=== PATIENT | male | born 1970 | race Caucasian/White ===

== ENCOUNTER 2025-01-27 22:03 | Emergency (ER) | payer BC, SELFPAY ==
[2025-01-27 22:07] VITALS: BP 144/86
[2025-01-28 00:21] VITALS: BP 113/75
[2025-01-28 01:00] VITALS: BP 129/82
--- NOTE | 2025-01-28 01:16 | ED.GENMED ---
History of Present Illness
General
Chief Complaint: Musculo-Skeletal Complaint
Source: patient and spouse
Time Seen by Provider: 01/28/25 00:56
History of Present Illness
History of Present Illness:
This patient is a 55-year-old male presents emergency department complaints of discomfort that he first noted on Monday described as involving his neck posteriorly and his shoulders bilaterally, described as a 'ache'. He also noticed it in his
lower back and legs. He said he would have a occasional headache 'here and there' associated with this. He took Advil and his symptoms improved. He did state that his symptoms would 'come and go'. Symptoms were worse with movement. He suspected
that the symptoms were related to his resuming of his form of exercise which is virtual boxing, the day before. 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
recurrent discomfort in the posterior neck described as a 'ache. He says he started to get 'panicky' about this, and started to wonder if it could be related to elevated blood pressure. Of note, patient had a recent reading of elevated blood
pressure with his primary care doctor but was not thought to have an elevation making him a candidate for medications. Patient denies associated diaphoresis, visual changes, numbness, tingling, focal weakness, dizziness, vertigo, abdominal pain,
dyspnea. While waiting here in the waiting room he states that the neck discomfort went to his shoulders, and now he is completely pain-free. Patient is seen a director of automation in the past as he had an established relationship with his thymoma
removal, was told his workups have been unremarkable and that he no longer needs to be followed by them. He has no prior history of cardiac illness, clotting disorder, etc. He denies family history of sudden cardiac , aneurysm, dissection,
etc. Patient is currently asymptomatic. He does report that about a month ago he was on a short flight, lasting less than 2 hours and as he was leaving, a nearby drinking cup tipped over and hit him 'at the top of my spine', described as the upper
part of his T-spine area. It hurt for a day or 2 and then resolved completely. He is unclear if this is related. Patient denies a pleuritic component to his symptoms.
Past History
Past History
ED Past Medical History: GERD, Psychiatric (Anxiety) and Other (Diverticulosis, gastritis, thymoma removal s/p radiation 06/29 at [facility])
ED Past Surgical History: Other (thymoma removal, wisdom tooth extraction)
Social History
Tobacco: Former smoker (in teenage years )
Alcohol: None
Drug: None
Personal:
Living: with family
Family History
Family History: Other (Noncontributory)
Phy Exam
Physical Exam
Physical Exam:
(late entry 01.30.25)
GENERAL: Alert , in no apparent distress
EYE: pupils equal and reactive
NECK: Supple, no significant adenopathy, no ttp midline, no bruit, no swelling noted.
ENT: o/p clr, mmm.
CARDIAC: Regular rate and rhythm .
LUNGS: Clear breath sounds bilaterally, no acute respiratory distress, no wheezes/rales/rhonchi
ABDOMEN: Soft, without focal tenderness, no r/g, no cvat
NEUROLOGICAL: Alert and oriented, no focal neuro deficits
SKIN: Warm and dry, skin intact.
MUSCULOSKELETAL: No edema, well perfused.
PSYCH: Normal and appropriate interaction.
Course
Orders/Labs/Results
Orders:
Orders
01/27/25 22:16
Electrocardiogram (*1) Urgent
Reason for Study: Chest Pain
EKG- Treatment ONCE
Vital Signs
Initial and Last Documented VS:
Initial Vital Signs
Temp Pulse Resp BP Pulse Ox
98.4 F 98 18 144/86 98
01/27/25 22:07 01/27/25 22:07 01/27/25 22:07 01/27/25 22:07 01/27/25 22:07
Last Documented Vital Signs
Temp Pulse Resp BP Pulse Ox
98.4 F 83 16 129/82 98
01/27/25 22:07 01/28/25 01:45 01/28/25 01:45 01/28/25 01:00 01/28/25 01:45
*Pulse Oximetry
SaO2: 98
Oxygen Mode of Delivery: Room air
Patient hypoxic: no
*Critical Care Note
Total Time (30-74mins, 75-104mins- exclusive of procedures): Not Applicable
Update Note
Update Note:
Patient presents to the Emergency Department with __neck/back/leg pain
Number and Complexity of Problems Addressed at the Encounter
� Chronic conditions affecting care:
� Acute Exacerbation and/or Progression of Chronic Illness:
� Differential Diagnosis includes: But not limited to muscular strain, radiculopathy, ACS, etc. etc. etc.
Amount and/or Complexity of Data to be Reviewed and Analyzed
� I performed an independent evaluation of and my interpretation is:
EKG: Read by me, normal sinus rhythm, normal rate, normal axis, no acute ischemia
CT:
Xrays:
Laboratory Studies:
Other:
� Review of other/old records reveals:
� Clinical information was obtained by an independent historian: who is bedside
� Prescriptions/Medications Considered but not given:
� Further testing considered but not performed:
Risk of Complications and/or Morbidity or Mortality of Patient Management
� Social determinants of health affecting care:
� Discussion with other providers (PCP, Hospitalists, Consultants, etc):
� Escalation of care including admission/observation vs risk of discharge considered: 1:34 AM Long long discussion with patient and regarding his workup here. He declines any further testing beyond an ECG. He understands
that an ECG alone is not a complete workup and we are unable to fully exclude potentially serious/life-threatening illness such as ACS, dissection, PE, etc. etc. I did describe to him our concerns and that if he changed his mind about this decision
he is strongly encouraged to return to the emergency department. He does plan to contact his director of automation and PCP in the morning. Patient remains pain-free. I also did clarify with patient regarding the report of 'chest pain' in the triage note
that that that both he and his states that that was misinterpreted and that he has never had chest pain. He was describing discomfort in the neck and along the sides of his thorax that was very movement related.
ED Attending Note
-
Portions of this chart may have been created with voice recognition software.� Occasional wrong word or��sound alike� substitutions may have occurred due to the inherent limitations of voice recognition software.
Discharge Plan
Departure
Patient Disposition: Home (Routine Discharge)
Date of Disposition: 01/28/25
Time of Disposition: 01:35
Patient with high blood pressure during this ER visit?: Yes
Condition: Good
Discharge Problem:
Neck pain
Instructions: BLOOD PRESSURE
Prescriptions:
No Action
famotidine 20 MG tablet
20 mg PO DAILYPRN PRN (Reason: gerd)
ergocalciferol (vitamin D2) 1,250 mcg (50,000 unit) Capsule
1,250 mcg PO WE
Linzess 145 mcg Capsule
145 mcg PO Q48H
oxycodone-acetaminophen 5-325 mg Tablet
2 tab PO Q4HPRN PRN (Reason: severe pain) Qty: 15 0RF
ibuprofen 600 mg tablet
600 mg PO Q6H PRN (Reason: Pain) Qty: 30 0RF
Activity Restrictions/Additional Instructions:
WE RECOMMENDED FURTHER TESTING TONIGHT BUT YOU DECLINED. IF YOU CHANGE YOUR MIND PLEASE COME BACK WE WANT TO TAKE CARE OF YOU! IT IS HIGHLY RECOMMENDED THAT YOU CONTACT BOTH YOUR PRIMARY CARE DOCTOR AND SUBMARINE ADVISORY TEAM WATCH OFFICER IN THE MORNING FOR FURTHER
CARE. IF YOU DEVELOP CHEST PAIN, SHORTNESS OF BREATH, DIZZINESS, NUMBNESS, TINGLING, NAUSEA, OR OTHER WORRISOME SIGNS, PLEASE RETURN TO THE ER IMMEDIATELY!
Interventions
Interventions:
*Risk Screen - Suicide Last Done: 01/27/25 22:14
*General Assessment Last Done: 01/28/25 01:49
*Neglect/Abuse Screening Last Done: 01/27/25 22:14
*ED- Fall Risk Assessment Last Done: 01/28/25 01:49
*ED COVID-19 Vaccine History Last Done: 01/28/25 01:49
*Nursing Disposition Last Done: 01/28/25 01:56
ED-Musculoskeletal Assessment Last Done: 01/28/25 01:49
Discharge Date and Time
Discharge Date/Time: 01/28/25 02:04
Print Language: ALBANIAN
== END 2025-01-28 02:04 | disposition home or self-care (01) ==
LOC: EMR 22:03
PROVIDERS: EMERGENCY PHYSICIAN Emergency Medicine; FAMILY PHYSICIAN Family Medicine
DX: M54.2 Cervicalgia (principal); K21.9 Gastro-esophageal reflux disease without esophagitis; F41.9 Anxiety disorder, unspecified; Z87.19 Personal history of other diseases of the digestive system; Z87.891 Personal history of nicotine dependence
CPT/HCPCS: 99283; 93005

== ENCOUNTER 2025-01-28 12:00 | Inpatient (IN) | payer BC, SELFPAY ==
[2025-01-28] VITALS (12 sets, daily range): BP systolic 107–144; BP diastolic 79–92; BMI 33.0; BMI 33.9
[2025-01-28 05:21] LABS: Hematocrit 44.0 % (39.0-52.0); Hemoglobin 15.5 g/dL (13.0-18.0); Mean Corp Hgb Conc. 35.2 g/dL (33.0-37.0); Mean Corpuscular Volume 80.4 fL (80.0-94.0); Platelet Count 170 10^3/uL (130-400); Red Cell Dist. Width 12.0 % (11.5-14.5)
--- NOTE | 2025-01-28 05:36 | ED.GENMED ---
History of Present Illness
General
Chief Complaint: Chest Pain
Source: patient and spouse
Time Seen by Provider: 01/28/25 05:14
History of Present Illness
History of Present Illness:
This patient is a 55-year-old male with complaints of pain that returned after he left the emergency department. He describes feeling it in his upper back but also across his chest. His states that he developed diaphoresis with this although
he is not diaphoretic at this time. He also notes discomfort in the left shoulder 'a little'. He describes the pain as 'achy', and seems to be worse when he takes a deep breath. He denies associated leg swelling, fever, chills, nausea, vomiting,
abdominal pain, numbness, tingling, focal weakness, dizziness, visual changes, change in speech. The pain is constant and is worse with certain movements including a deep breath. Of note, patient was seen earlier in the emergency department by me,
was describing an ache in his neck and shoulders but specifically denied chest pain at that time. His ECG was unremarkable. I strongly recommended further testing but he declined at that time and was encouraged to return to the ER if he changes
mind which he did.
Past History
Past History
ED Past Medical History: GERD, Psychiatric (Anxiety) and Other (Diverticulosis, gastritis, thymoma removal s/p radiation 06/29 at [facility])
ED Past Surgical History: Other (thymoma removal, wisdom tooth extraction)
Social History
Tobacco: Former smoker (in teenage years )
Alcohol: None
Drug: None
Personal:
Living: with family
Family History
Family History: Other (Noncontributory)
Phy Exam
Physical Exam
Physical Exam:
GENERAL: Alert , appears mildly uncomfortable
EYE: pupils equal and reactive
NECK: Supple, no significant adenopathy.
ENT: o/p clr, mmm.
CARDIAC: Regular rate and rhythm .
LUNGS: Clear breath sounds bilaterally, no acute respiratory distress, no wheezes/rales/rhonchi
ABDOMEN: Soft, without focal tenderness, no r/g, no cvat
NEUROLOGICAL: Alert and oriented, no focal neuro deficits
SKIN: Warm and dry, skin intact.
MUSCULOSKELETAL: No edema, well perfused.
PSYCH: Normal and appropriate interaction.
Scores
Heart Score for Chest Pain Patients
STEMI patient?: Not applicable
Course
Orders/Labs/Results
Orders:
Orders
01/28/25 04:04
EKG [Electrocardiogram (*1)] Urgent
Reason for Study: Chest Pain
EKG- Treatment ONCE
01/28/25 04:20
Chest [CR Chest - 2 Views ] Urgent
Comment:
Reason For Exam: chest pain increased on deep insp
01/28/25 04:49
Complete Blood Count/No Diff Urgent
Comprehensive Metabolic Panel Urgent
D-Dimer Urgent
Troponin I Urgent
01/28/25 05:35
HYDROmorphone [Dilaudid] 1 mg IV NOW STA
01/28/25 06:34
HYDROmorphone [Dilaudid] 1 mg IV NOW STA
01/28/25 06:42
CT Chest PE Study Urgent
Comment:
Reason For Exam: chest pain
01/28/25 09:11
Ketorolac [Toradol] 15 mg IV NOW STA
01/28/25 11:30
HYDROmorphone [Dilaudid] 1 mg IV Q4HPRN PRN
Ketorolac [Toradol] 15 mg IV Q6HPRN PRN
Oxycodone/Acetaminophen [Percocet 5/325] 2 tablet PO Q4HPRN PRN
01/28/25 11:31
Admit/Transfer Patient As Directed
Co-Sign Provider:
Level of Care: Inpatient admission
Assign to:: Medical/Surgical
Physician / Group: Dr. Arango
Diagnosis: Pleural mass
Reason for Hospitalization: Chest pain
Expected length of stay greater than two midnights?: Yes
ELOS- Estimated Length of Stay in days: 2
I certify the patient meets the requirements for IP care: Yes
01/28/25 11:35
Code Status As Directed
Resuscitation Status: Full Code
01/28/25 Dinner
Regular
At Your Request: Full Participation
Does patient need a safe tray?: No
01/28/25 15:58
Acetaminophen [Tylenol] 650 mg PO Q4HPRN PRN
Bisacodyl [Dulcolax] 10 mg RECTAL [id number] PRN
Docusate W/Senna [Senokot-S] 1 tablet PO BIDPRN PRN
Famotidine [Pepcid] 20 mg PO DAILYPRN PRN gerd
Ondansetron Injectable [Zofran] 4 mg IV Q6HPRN PRN
Polyethylene Glycol Powder [Miralax] 17 grams PO DAILYPRN PRN
01/28/25 15:58
PULMONARY CONSULT Routine
Consulting Provider: Rafael Escoto
Was physician already notified: Yes
Reason for consult: chest pain, Pleural mass vs loculated fluid
Activity As Directed
Activity Level: As Tolerated
Pneumatic Compression Sleeves As Directed
Type: Knee high
Vital Signs As Directed
Frequency: Per unit guidelines
O2 Therapy [RESP] Routine
Titrate/Wean O2 to maintain O2 sat greater than (%): 92
DX Deep Vein Thrombosis Video Routine
01/29/25 05:51
Basic Metabolic Panel IN AM
Complete Blood Count/With Diff IN AM
01/29/25 06:00
Linaclotide [Linzess] 145 mcg PO Q48H
01/29/25 08:00
Ergocalciferol [Drisdol (Vitamin D2)] 50,000 units PO WE@0800
Abnormal Lab Results
01/28/25
04:49
D-Dimer 0.61 H ug/mlFEU
(0.00-0.50)
Glucose 125 H mg/dl
(70-99)
Total Bilirubin 1.4 H mg/dl
(0.2-1.3)
01/28/25 04:49
01/28/25 04:49
Vital Signs
Initial and Last Documented VS:
Initial Vital Signs
Temp Pulse Resp BP Pulse Ox
98.9 F 98 18 144/87 99
01/28/25 04:15 01/28/25 04:15 01/28/25 04:15 01/28/25 04:15 01/28/25 04:15
Last Documented Vital Signs
Temp Pulse Resp BP Pulse Ox
98.2 F 92 19 126/87 97
01/29/25 11:52 01/29/25 11:52 01/29/25 11:52 01/29/25 11:52 01/29/25 11:52
*Pulse Oximetry
SaO2: 97
Oxygen Mode of Delivery: Room air
Patient hypoxic: no
*Critical Care Note
Total Time (30-74mins, 75-104mins- exclusive of procedures): Not Applicable
Update Note
Update Note:
Patient presents to the Emergency Department with ___chest back shoulder pain
Number and Complexity of Problems Addressed at the Encounter
� Chronic conditions affecting care:
� Acute Exacerbation and/or Progression of Chronic Illness:
� Differential Diagnosis includes: But not limited to ACS, musculoskeletal pain, PE, dissection, etc. etc.
Amount and/or Complexity of Data to be Reviewed and Analyzed
� I performed an independent evaluation of and my interpretation is:
EKG: Read by me, normal sinus rhythm, no acute ischemic changes noted
CT:
1. New 5.2 cm pleural-based mass in the anterior left hemithorax abutting the anterior and mediastinal pleural surfaces. Diagnostic possibilities are (1) loculated complex pleural fluid or (2) recurrent metastatic thymoma.
2. New small left pleural effusion in the inferior left hemithorax.
3. Moderate left lower lobe airspace opacity. Mild airspace opacity in the lingula, right middle lobe, and right lower lobe. Diagnostic possibilities are (1) multifocal atelectasis, (2) pneumonia (especially in the left lower lobe), or (3) less
likely alveolar pulmonary edema.
4. Chronic pulmonary arterial hypertension.
5. Mild cardiomegaly.
Xrays: Read by me, NAD
Laboratory Studies: Troponin normal, age-adjusted did D-dimer slightly elevated
Other:
� Review of other/old records reveals:
� Clinical information was obtained by an independent historian: who is bedside
� Prescriptions/Medications Considered but not given:
� Further testing considered but not performed:
Risk of Complications and/or Morbidity or Mortality of Patient Management
� Social determinants of health affecting care:
� Discussion with other providers (PCP, Hospitalists, Consultants, etc):
� Escalation of care including admission/observation vs risk of discharge considered: I initially ordered morphine for patient's pain but he states it makes him nauseous. He suggested Dilaudid, and understands that this may also
put him at risk for nausea, accepting that risk he requests this medication for pain.
6:43 AM vitals remained stable, no diaphoresis, patient's pain unchanged. Repeat dose of pain medication ordered. D-dimer just resulted, CT ordered.
824am CT resulted, printed outa nd d/w pt and . He is still having pain, but improved. Vitals stable. Recommend admission, pulm eval, etc. D/w hospitalist via tt. No PE noted on CT. Highly doubt dissection given pulses equal, no hx htn,
not ripping/tearing, not sudden onset, etc etc.
ED Attending Note
-
Portions of this chart may have been created with voice recognition software.� Occasional wrong word or��sound alike� substitutions may have occurred due to the inherent limitations of voice recognition software.
Discharge Plan
Departure
Patient Disposition: Admit
Date of Disposition: 01/28/25
Time of Disposition: :
Admit to: Telemetry
Presentation/result/management discussed w/ accepting MD/DO: Hospitalist
Condition: Fair
Discharge Problem:
Chest pain
Interventions
Interventions:
*Risk Screen - Suicide Last Done: 01/28/25 04:15
*General Assessment Last Done: 01/28/25 05:06
*Neglect/Abuse Screening Last Done: 01/28/25 09:08
*ED- Fall Risk Assessment Last Done: 01/28/25 05:05
*ED COVID-19 Vaccine History Last Done: 01/28/25 05:05
*Nursing Disposition Last Done: 01/28/25 17:45
ED- Cardiac Assessment Last Done: 01/28/25 05:07
Discharge Date and Time
Discharge Date/Time: 01/28/25 17:45
[2025-01-28] MEDS: DILAUDID 1 MG IV ×2 (05:40→06:44)
[2025-01-28 05:45] LABS: ALT (SGPT) 34 U/L (0-50); AST (SGOT) 23 U/L (17-59); Albumin 4.5 g/dl (3.5-5.0); Alkaline Phosphatase 52 U/L (38-126); Blood Urea Nitrogen 17 mg/dl (9-20); Calcium 9.6 mg/dl (8.4-10.2); Carbon Dioxide 24 mmol/L (22-30); Chloride 104 mmol/L (98-107); Estimated Creatinine Clearance 85 ml/min; Glucose 125 mg/dl (70-99); Potassium 4.3 mmol/L (3.5-5.1); Sodium 137 mmol/L (135-145); Total Protein 7.3 g/dl (6.3-8.2); eGFR > 60.00
[2025-01-28 05:55] LABS: Troponin I < 0.012 ng/ml
[2025-01-28 06:21] LABS: D-Dimer 0.61 ug/mlFEU (0.00-0.50)
[2025-01-28] MEDS: TORADOL 15 MG IV ×3 (09:16→20:35)
--- NOTE | 2025-01-28 11:41 | HPS.HSE ---
Family Physician
-
Family Physician: Michael Orozco
Chief Complaint
-
Chest pain
History of Present Illness
55M with history of thymoma s/p resection, vitamin D deficiency who presents with acute onset of neck shoulder and chest pain. He notes that the pain started Monday after virtual boxing session mostly in the back of his neck with them this
radiated to his left shoulder and continue to evolve into his chest and between the shoulder blades, worsening with deep breaths, associated with sweats, such that he had to come to the ER. He denies recent fevers, chills, upper respiratory
symptoms, cough, nausea, vomiting, abdominal pains. His is at bedside. Patient received some IV Toradol for the pain and was much improved. He currently denies shortness of breath.
CT shows a new 5.3 cm pleural mass on the left side questionable recurrence of metastatic thymoma versus loculated pleural fluid as well as a LLL opacity.
Medical History
Past Medical History
Past Medical History: Reports Other (GERD, Psychiatric (Anxiety) and Other (Diverticulosis, gastritis, thymoma removal s/p radiation 06/29 at [facility]))
Past Surgical History: Reports Other (Other (thymoma removal, wisdom tooth extraction))
Social History
Tobacco: Former Smoker (As a teenager 1 to 2 packs/day for 4 to 5 years)
Alcohol: None
Drug: None
Personal:
Living: With Family
Family History
Family History: Cancer (Mother lung cancer) and Diabetes (Father)
Allergies / Home Medications
Allergies reflects when Allergies were last updated in [facility].
Home Medications with original date entered in [facility]
Allergy/Medication List:
Allergies
Allergy/AdvReac Type Severity Reaction Status Date / Time
Gadolinium-Containing Allergy Nausea / Verified 01/28/25 04:15
Contrast Medi Vomiting
morphine Allergy Unknown Verified 01/28/25 04:15
Home Medications
famotidine 20 mg tablet 20 mg PO DAILYPRN PRN gerd 01/01/17
ergocalciferol (vitamin D2) 1,250 mcg (50,000 unit) capsule 1,250 mcg PO WE 01/28/25
linaclotide 145 mcg capsule (Linzess) 145 mcg PO Q48H 01/28/25
Review of Systems
-
A 12 point ROS was completed and negative except as noted: Yes
Physical Exam
Vital Signs
Vital Signs
Temp Pulse Resp BP Pulse Ox
98.1 F 102 24 117/86 95
01/28/25 05:04 01/28/25 10:30 01/28/25 10:30 01/28/25 10:00 01/28/25 10:30
Physical Exam
General: No Apparent Distress
HEENT: Moist mucous membranes and PERRLA
Respiratory: Clear and Non Labored Respirations
Cardiac: S1/S2 and Regular Rhythm; No Murmur or Rub
GI: Soft, Non Tender, Non Distended and Normal Bowel Sounds
Musculoskeletal: No Clubbing, No Cyanosis and No Edema
Skin: Warm and Dry; No Rash
Neuro: Awake, AO x 3 and Nonfocal/grossly intact
Psych: Calm
Laboratory Results
-
01/28/25 04:49
01/28/25 04:49
Laboratory Results
Total Bilirubin 1.4 mg/dl (0.2-1.3) H 01/28/25 04:49
AST 23 U/L (17-59) 01/28/25 04:49
ALT 34 U/L (0-50) 01/28/25 04:49
Alkaline Phosphatase 52 U/L (38-126) 01/28/25 04:49
Troponin I < 0.012 ng/ml 01/28/25 04:49
Data Reviewed
-
CT Scan: Report Reviewed by me, Discussed with Physician, Discussed with Patient and Discussed with Family
Lab Data: Labs Reviewed by me, Discussed with Patient and Discussed with Family
Impression/Plan
-
IMPRESSION:
55M with H/o thymoma s/p surgery and radiation presenting with acute onset chest pain, found to have pleural mass, LLL opacity.
PLAN:
1. Pleuritic chest pain
#Pleural mass
#LLL opacity
Per CT read pleural mass could be recurrent metastatic thymoma versus loculated pleural effusion. This is likely what is causing his chest pain which is radiating to other parts of his body. He has neck and shoulder pain may alternatively be from
musculoskeletal pain.
Consulted pulmonology.. Appreciate recommendations. Monitoring off antibiotics for now, possible dx procedure pending comparison to previous CT
Patient wishes for any interventions to be performed with his known physicians at [facility]
Pain control with p.o. Percocet, IV Dilaudid, and IV Toradol as needed
Not requiring oxygen
2. constipation
linzess
3. vitamin D deficiency
continue supplementation
4. GERD
famotidine
5. mildly elevated total bilirubin
continue to monitor
DVT PPx
SCDs
Full code
--- NOTE | 2025-01-28 11:49 | CON.PUL ---
Consultation
Consultation Request
Date/Time Consultation Requested: 01/28/2025-1145 AM
Date/Time Consultation Performed: 01/28/2025-12 noon
Requesting Provider: hospitalist
Performing Provider: Dr. Escoto
Reason for Consultation: Pleural mass
Medical History
-
Chief Complaint: Shortness of breath
History of Present Illness:
55-year-old minimally previous smoking male with a history of thymoma status post radiation at [facility], GERD, anxiety, diverticulosis, gastritis who presented with pain upper back with some diaphoresis and some discomfort who had a CT chest that showed
a 4.2 cm pleural-based mass and pulmonary asked consult pleural-based mass 01/28/2025.. Patient states he gets routine CAT scans once yearly at [facility]-last one March 2024. Recently he thought he had musculoskeletal issues as he likes to ' Box'. He
came to the emergency room and left recently feeling better when then return with some pleurisy, diaphoresis. 3 weeks ago he was treated with 3 days of azithromycin for suspected pneumonia. He currently denies any shortness of breath at rest, some
dyspnea on exertion but no chest pain. Intermittent pleurisy and some muscular skeletal pains in the back. He has no fevers or chills, abdominal pain, nausea, leg swelling, or focal weakness
Past Medical History
Past Medical History: None (Thymoma status post resection/radiation [facility] 2017 . GERD. Anxiety. Diverticulosis. Gastritis. Community-acquired pneumonia October 2022. Prostatitis.)
Social History
Tobacco: Former Smoker (In his teenage years)
Alcohol: None
Drug: None
Personal:
Living: With Family
Occupational Exposures: No known asbestos exposure
Environmental Exposures: No known tuberculosis exposure
Family History
Family History: Reviewed & Not Pertinent (Father from sepsis. Type 2 diabetes, mother-lung cancer, sister cardiac arrest)
Allergies / Home Medications
Allergies
Allergy/AdvReac Type Severity Reaction Status Date / Time
Gadolinium-Containing Allergy Nausea / Verified 01/28/25 04:15
Contrast Medi Vomiting
morphine Allergy Unknown Verified 01/28/25 04:15
Home Medications
�Medication �Instructions �Recorded �Confirmed �Last Taken �Type
famotidine 20 mg tablet 20 mg PO DAILYPRN PRN gerd 01/01/17 01/28/25 Unknown History
ergocalciferol (vitamin D2) 1,250 1,250 mcg PO WE 01/28/25 01/28/25 Unknown History
mcg (50,000 unit) capsule
linaclotide 145 mcg capsule 145 mcg PO Q48H 01/28/25 01/28/25 Unknown History
(Linzess)
Review of Systems
-
Unable to Obtain full review of systems at this time due to: Other ( per HPI)
Vitals / Labs / Diagnostic Testing
Vital Signs
Temp Pulse Resp BP Pulse Ox
98.1 F 102 24 117/86 95
01/28/25 05:04 01/28/25 10:30 01/28/25 10:30 01/28/25 10:00 01/28/25 10:30
Lab Data
01/28/25 04:49
01/28/25 04:49
Diagnostic Testing:
Physical Exam
-
Exam:
Well-nourished and well-developed in no apparent distress
HEENT-atraumatic, normocephalic
Neck-supple, no JVD, no bruit
Heart-regular rate and rhythm-no murmurs, rubs or gallops
Chest-clear to auscultation, no wheezes, crackles
Back-no tenderness
Abdomen-soft, nontender, nondistended, no hepatosplenomegaly
Extremities-no cyanosis, clubbing, edema and good peripheral pulses
Integument-intact, no rashes, lesions or ecchymosis
Neurology-alert and oriented, nonfocal motor and sensory exam
Assessment
-
55-year-old minimally previous smoking male with a history of thymoma status post radiation at [facility], GERD, anxiety, diverticulosis, gastritis who presented with pain upper back with some diaphoresis and some discomfort who had a CT chest that showed
a 4.2 cm pleural-based mass and pulmonary asked consult pleural-based mass 01/28/2025.
Left upper lobe pleural-based mass-5.2 cm anterior mediastinal pleural surfaces
History of thymoma resection/radiation 2017
Multifocal pneumonia/Atelectasis-recent pneumonia treated 3 weeks ago with azithromycin
Conditions present prior to admission:
Thymoma status post resection/radiation [facility] 2018-followed yearly by Dr. Queen at [facility]-last CT chest March 2024
GERD.
Anxiety.
Diverticulosis.
Gastritis.
Community-acquired pneumonia October 2022.
Prostatitis..
Renal calculi.
Hiatal hernia.
Obesity
Thymoma removal 2017. Meniscus, left knee 2020. [place] teeth 2012
Plan
Acute decompensation related to musculoskeletal issues, but, has some intermittent pleurisy that may be related to pleural abnormality-loculated effusion versus mass.
Recommend CT chest comparison to [facility]-March 2024 CT-if pleural-based abnormalities are new, then additional diagnostics including possible biopsy will be recommended-would defer to [facility]-told patient and to make an appointment earlier than
anticipated March 2025 scheduled appointment
Has multiple areas of airspace disease that could be pneumonia, however, he has no leukocytosis. Her temperature- did report diaphoresis, however
Check pro calcitonin.
Check sputum culture if able.
Low threshold for antibiotics.
Follow radiographically.
Monitor pleurisy..
Toradol for analgesia per primary service-he received Toradol with good effect.
Pulmonary hypertension noted on CT chest -No central pulmonary emboli were noted
EKG without significant abnormalities.
Check echocardiogram to be completely
DVT prophylaxis.
Nutrition
Early mobilization.
Dr. Escoto reviewed with at the bedside in the emergency room
The patient is following yearly by [facility]-surgical team-Dr. Queen with yearly CT chest-last one March 2024, reportedly normal
Diagnostic data:
CXR 10/11/22: Right-sided opacification suspicious for pneumonia, predominantly right middle lobe appears slightly improved. Likely new small patchy opacification in the inferior right upper lobe.�������
CT chest PE study 10/09/2022: No PE. Right-sided pneumonia. Small right pleural effusion. Distended main pulmonary artery suggesting an element of pulmonary artery tree hypertension. Mild hepatosplenomegaly..
CT chest 01/28/25-comparison to chest x-ray 01/28/[address] chest September 2022, continue 5.2 cm pleural-based anterior left upper lobe mass abutting the anterior mediastinal pleural surfaces, the small left pleural effusion and moderate left lower lobe
airspace opacifications, mild airspace/patient lingula, right middle lobe and right lower lobe chronic pulmonary artery hypertension
Pulmonary function testing: (11/25/2022)FEV1 /FVC:78%FEV1:2.73 L-80%FVC:3.49 L to 78%Total lung capacity:4.59 L -71%Residual volume:0.88 L-40%Expiratory reserve volume:DLCO:24.18-88%DLCO/VA:116%
Data Reviewed
-
EKG: Report reviewed by me
Radiology: Image personally visualized and interpreted and Report reviewed by me
CT Scan: Image personally visualized and interpreted and Report reviewed by me
Medical Tests (Nuc Med, Echo etc): Report reviewed by me
Labs: Labs reviewed by me
Old Records: Reviewed
Total Time Spent with Patient (in minutes): 65
[2025-01-28 15:29] LABS: Procalcitonin 0.08 ng/ml (0.0-0.25)
[2025-01-28] MEDS: PEPCID 20 MG PO (18:05)
--- NOTE | 2025-01-28 18:06 | PTCARENOTE ---
Received pt from [facility] via stretcher. Pt ambulated to bed independently. AAOX3. Pt c/o sharp,shooting pain from middle chest to middle back, able to tolerate. Assessed and oriented to room. Pt verbalized understanding of call estrada. Call estrada within
close reach. Will continue to monitor.
--- NOTE | 2025-01-29 02:39 | DOWNTIME ---
There was a Testin Client Toppiece Cutter Downtime on 01/29/2025 from 0100 to 01/29/2025 at 0235. Downtime documentation of patient's care, including medication administrations, has been reconciled in the electronic record per guidelines. Refer to the
patient's paper chart under the miscellaneous tab to see printed paper medication records and downtime forms.
[2025-01-29 06:15] LABS: Hematocrit 41.0 % (39.0-52.0); Hemoglobin 14.3 g/dL (13.0-18.0); Mean Corp Hgb Conc. 34.9 g/dL (33.0-37.0); Mean Corpuscular Volume 81.2 fL (80.0-94.0); Nucleated Red Blood Cells % 0 % (-); Platelet Count 157 10^3/uL (130-400); Red Cell Dist. Width 12.4 % (11.5-14.5)
[2025-01-29 06:46] LABS: Blood Urea Nitrogen 19 mg/dl (9-20); Calcium 8.8 mg/dl (8.4-10.2); Carbon Dioxide 27 mmol/L (22-30); Chloride 102 mmol/L (98-107); Estimated Creatinine Clearance 84 ml/min; Glucose 106 mg/dl (70-99); Potassium 4.2 mmol/L (3.5-5.1); Sodium 135 mmol/L (135-145); eGFR > 60.00
[2025-01-29 07:00] VITALS: BP 144/86
[2025-01-29] MEDS: TYLENOL 650 MG PO (07:47)
[2025-01-29] MEDS: DRISDOL (VITAMIN D2) 50000 UNITS PO (07:47)
--- NOTE | 2025-01-29 10:25 | W.PN.PUL.V3 ---
Today's Communication / Plan
-
recommended obtaining CD of current CT chest and making appointment in the next 1-2 weeks at [facility] for CT comparison and potential need for biopsy or further workup if the left upper lobe pleural abnormality is new
Stable for discharge from a pulmonary perspective
Assessment
-
55-year-old minimally previous smoking male with a history of thymoma status post radiation at [facility], GERD, anxiety, diverticulosis, gastritis who presented with pain upper back with some diaphoresis and some discomfort who had a CT chest that showed
a 4.2 cm pleural-based mass and pulmonary asked consult pleural-based mass 01/28/2025.
Left upper lobe pleural-based mass-5.2 cm anterior mediastinal pleural surfaces
History of thymoma resection/radiation 2017
Multifocal pneumonia/Atelectasis-recent pneumonia treated 3 weeks ago with azithromycin
Conditions present prior to admission:
Thymoma status post resection/radiation [facility] 2017-followed yearly by Dr. Queen at [facility]-last CT chest March 2024
GERD.
Anxiety.
Diverticulosis.
Gastritis.
Community-acquired pneumonia October 2022.
Prostatitis..
Renal calculi.
Hiatal hernia.
Obesity
Thymoma removal 2017. Meniscus, left knee 2020. [place] teeth 2012
Plan
Acute decompensation related to musculoskeletal issues, but, has some intermittent pleurisy that may be related to pleural abnormality-loculated effusion versus mass.
Recommend CT chest comparison to [facility]-March 2024 CT-if pleural-based abnormalities are new, then additional diagnostics including possible biopsy will be recommended-would defer to [facility]-told patient and to make an appointment earlier than
anticipated March 2025 scheduled appointment
Has multiple areas of airspace disease that could be pneumonia, however, he has no leukocytosis or temperature- did report diaphoresis, however
Procalcitonin negative
Unable to produce sputum culture
Observe off antibiotics
Follow radiographically-can be done as an outpatient
Monitor pleurisy-improved
Toradol for analgesia per primary service-he received Toradol with good effect.
Pulmonary hypertension noted on CT chest -No central pulmonary emboli were noted
EKG without significant abnormalities.
Echocardiogram 01/28/2025-EF 60-65%, no significant valvular disease, technically difficult study with fair quality
DVT prophylaxis recommended if remains hospitalized
Nutrition
Early mobilization.
Dr. Escoto reviewed with at the bedside in the emergency room on 01/28/[address] Escoto reviewed with hospitalist on 01/29/2025
Patient stable for proposed discharge from a pulmonary perspective
The patient is following yearly by [facility]-surgical team-Dr. Queen with yearly CT chest-last one March 2024, reportedly normal-recommended obtaining CD of current CT chest and making appointment in the next 1-2 weeks at [facility] for CT comparison and
potential need for biopsy or further workup if the left upper lobe pleural abnormality is new
Diagnostic data:
CXR 10/11/22: Right-sided opacification suspicious for pneumonia, predominantly right middle lobe appears slightly improved. Likely new small patchy opacification in the inferior right upper lobe.�������
CT chest PE study 10/09/2022: No PE. Right-sided pneumonia. Small right pleural effusion. Distended main pulmonary artery suggesting an element of pulmonary artery tree hypertension. Mild hepatosplenomegaly..
CT chest 01/28/25-comparison to chest x-ray 01/28/[address] chest September 2022, continue 5.2 cm pleural-based anterior left upper lobe mass abutting the anterior mediastinal pleural surfaces, the small left pleural effusion and moderate left lower lobe
airspace opacifications, mild airspace/patient lingula, right middle lobe and right lower lobe chronic pulmonary artery hypertension
Pulmonary function testing: (11/25/2022)FEV1 /FVC:78%FEV1:2.73 L-80%FVC:3.49 L to 78%Total lung capacity:4.59 L -71%Residual volume:0.88 L-40%Expiratory reserve volume:DLCO:24.18-88%DLCO/VA:116%
Subjective Data
-
Date of Service:
Date of Service: January 29, 2025
Chief Complaint: Pulmonary Follow Up and Dyspnea Follow Up
Subjective:
Feels much improved, pain almost all gone, minimal pleurisy, no shortness of breath at rest or with exertion, no abdominal pain
Review of Systems
General: Other (Per HPI)
Objective Data
Data Reviewed
Vital Signs / I&O:
Vital Signs
Temp Pulse Resp BP Pulse Ox
99.0 F 100 20 144/86 96
01/29/25 07:00 01/29/25 07:00 01/29/25 07:00 01/29/25 07:00 01/29/25 07:00
Intake and Output
01/28/25 01/29/25 01/30/25
06:59 06:59 06:59
Intake Total 960 / 960
Balance 960 / 960
SaO2: 96
Physical Exam
General: Respiratory Distress (n) and Comfortable
HEENT: Normocephalic, Anicteric and Moist Mucous Membranes
Cardiovascular: Regular Rhythm and Murmur (n)
Respiratory: Wheeze (n), Crackles (n), Rhonchi (n), Non-Labored Respirations and Accessory Resp Muscle Use (n)
GI: Soft, Non Distended and Non Tender
Neurology: Awake, Alert and No Motor Deficits
Skin: Warm, Good Color, Cyanosis (n), Jaundice (n) and Rash (n)
Labs/Micro/Reports
Lab Data
01/29/25 05:51
01/29/25 05:51
--- NOTE | 2025-01-29 10:29 | W.DCSUMMARY ---
Discharge Summary
Discharge Data
Date of Admission: 01/28/25
Date of Discharge: 01/29/25
Total time spent discharging patient (in min): 35
-
Pending Results: No
Hospital Course
Discharging Physician :
Dr. Arango
Disposition :
Home
Principal Discharge diagnosis :
Pleuritic chest pain secondary to pleural mass versus loculated pleural effusion
Consults:
Pulmonology
Hospital Course :
55M with history of thymoma s/p resection/radiation, vitamin D deficiency who presents with acute onset of neck shoulder and chest pain. Cardiac enzymes negative, EKG unremarkable. CT shows a new 5.3 cm pleural mass on the left side questionable
recurrence of metastatic thymoma versus loculated pleural fluid as well as a LLL opacity. Patient was breathing comfortably on room air. WBC was within normal limits patient did not have any fever and procalcitonin was normal, so he was monitored
without any antibiotics. Pulmonology was consulted and they ordered an echocardiogram to rule out pulmonary hypertension, see below, and they did not feel that any acute intervention or invasive diagnostic testing was required inpatient. Patient's
pain was controlled with IV Toradol, and he was given a prescription for oral ibuprofen and oral narcotics on discharge. He is to follow-up with his outpatient holter scanning technician and/or cardiothoracic surgeon for definitive diagnostic testing and
further treatment. He received a CD of his CT scan images. He expressed understanding.
Important imaging findings :
CT chest
1. New 5.2 cm pleural-based mass in the anterior left hemithorax abutting the anterior and mediastinal pleural surfaces. Diagnostic possibilities are (1) loculated complex pleural fluid or (2) recurrent metastatic thymoma.
2. New small left pleural effusion in the inferior left hemithorax.
3. Moderate left lower lobe airspace opacity. Mild airspace opacity in the lingula, right middle lobe, and right lower lobe. Diagnostic possibilities are (1) multifocal atelectasis, (2) pneumonia (especially in the left lower lobe), or (3) less
likely alveolar pulmonary edema.
4. Chronic pulmonary arterial hypertension.
5. Mild cardiomegaly.
Echocardiogram
1. Technically difficult study with fair quality.
2. Normal left ventricular systolic function estimate ejection fraction 60 to 65%.
3. Mild concentric LVH.
4. No significant valve stenosis or regurgitation detected.
5. No prior study available for comparison.
Discharge exam:
General: No Apparent Distress
HEENT: Moist mucous membranes and PERRLA
Respiratory: CTAB
Cardiac: S1/S2 and Regular Rhythm; No Murmur or Rub
GI: Soft, Non Tender, Non Distended and Normal Bowel Sounds
Musculoskeletal: No Clubbing, No Cyanosis and No Edema
Skin: Warm and Dry; No Rash
Neuro: Awake, AO x 3 and Nonfocal/grossly intact
Psych: Calm
Discharge Plan
-
Patient Disposition: Home (Routine Discharge)
Discharge Diagnosis/Procedures: Pleurisy
Diet: Regular
Activity: No restrictions
Driving Restrictions: As prior to admission
Activity Restrictions/Additional Instructions:
You were having chest pain and a CT scan of your chest showed that there is a mass in the left upper lobe pushing against your pleural spaces, which could be concerning for recurrence of thymoma. Were seen by our pulmonology specialist Dr. Escoto
who is a partner of Dr. Navarro. You have did not require oxygen and your vital signs and your blood work were normal and showed no signs of any active infection or pneumonia. We performed an echocardiogram which showed no acute issue with your
heart. We treated your pleuritic pain with medication. The holter scanning technician did not feel that there was any need for inpatient procedures, however you should follow-up with your outpatient doctors Dr. Figueroa and Dr. Navarro to get outpatient
diagnostic testing, such as a biopsy, of the mass. In the meantime you have been prescribed pain medicine to take at home.
Instructions: Pleuritic chest pain
Referrals:
Michael Orozco MD [Family Provider, Family Practice]
Isaac Perez MD [Active, Pulmonary Medicine] - in one to two weeks
Phani Figueroa MD [Non-Admitting Privileges, Cardiac Surgery] - in one week
Prescriptions:
New
oxycodone-acetaminophen 5-325 mg Tablet
2 tab PO Q4HPRN PRN (Reason: severe pain) Qty: 15 0RF
ibuprofen 600 mg tablet
600 mg PO Q6H PRN (Reason: Pain) Qty: 30 0RF
Continued
famotidine 20 MG tablet
20 mg PO DAILYPRN PRN (Reason: gerd)
ergocalciferol (vitamin D2) 1,250 mcg (50,000 unit) Capsule
1,250 mcg PO WE
Linzess 145 mcg Capsule
145 mcg PO Q48H
Discharge Orders:
Discharge Patient (As Directed); Ordered 01/29/25
Ordered By: Mirian Arango
Discharge Date and Time
Discharge Date/Time: 01/29/25 12:09
Print Language: NORWEGIAN
--- NOTE | 2025-01-29 10:45 | CM ---
Addendum entered by Aleksandra Jain 01/29/25 10:46:
Patient seen at bedside with
IA completed
Lives in 2 story home with , no JULIANN, flight to bed/bath
PLOF: independent
DME: Crutches
Denies VN/Rehab
PCP: Michael Orozco
Pharmacy: [address], [place]
PLAN: Home, no needs
to transport
Original Note:
Patient discharge today
IMM n/a
PLAN: Home, no needs
to transport
[2025-01-29 11:52] VITALS: BP 126/87
== END 2025-01-29 12:09 | disposition home or self-care (01) | DRG 194 ==
LOC: 3 WEST ACU 12:00
PROVIDERS: ADMITTING PHYSICIAN Internal Medicine; CONSULT PHYSICIAN Internal Medicine Critical Care Medicine; EMERGENCY PHYSICIAN Emergency Medicine; FAMILY PHYSICIAN Family Medicine
DX: R09.1 Pleurisy (principal); C37 Malignant neoplasm of thymus; E55.9 Vitamin D deficiency, unspecified; E66.9 Obesity, unspecified; F41.9 Anxiety disorder, unspecified; K21.9 Gastro-esophageal reflux disease without esophagitis; K59.00 Constipation, unspecified; I27.20 Pulmonary hypertension, unspecified; Z92.3 Personal history of irradiation; Z87.891 Personal history of nicotine dependence; Z88.5 Allergy status to narcotic agent; Z79.899 Other long term (current) drug therapy; Z80.1 Family history of malignant neoplasm of trachea, bronchus and lung; Z87.01 Personal history of pneumonia (recurrent)
CPT/HCPCS: 71046; 71275; 80048; 80053; 84145; 84484; 85025; 85027; 85379; 93005; 93306; 96374; 96375; 96376; 99285; Q9967

== ENCOUNTER → 2025-05-13 12:08 | Outpatient (REF) | payer BC, SELFPAY | LOC: REG 12:08 | PROVIDERS: ATTENDING PHYSICIAN Internal Medicine Critical Care Medicine; FAMILY PHYSICIAN Family Medicine | DX: R93.89 Abnormal findings on diagnostic imaging of other specified body structures (principal) | CPT/HCPCS: 71046 ==